=== PATIENT | male | born 1975 | race Caucasian/White ===

== ENCOUNTER 2024-10-31 03:05 | Emergency (ER) | payer OTHER ==
[~2024-10-31] VITALS: Ht 182.9 cm; Wt 86.0 kg
[2024-10-31] MEDS ORDERED: LACTATED RINGER'S 1,000 ML IV ONE (03:30)
[2024-10-31] MEDS ORDERED: ondansetron HCL 4 MG/2 ML VIAL IV ONE (03:30)
[2024-10-31 04:35] VITALS: BP 113/76
== END 2024-10-31 07:48 | disposition home or self-care (01) ==
LOC: ED 03:05
DX: F10.129 Alcohol abuse with intoxication, unspecified (principal)
CPT/HCPCS: 99284; J7121